=== PATIENT | female | born 1990 | race Caucasian/White ===

== ENCOUNTER 2016-08-12 07:45 | Inpatient (IN) | payer OTHER ==
--- NOTE | 2016-08-18 17:01 | P.HPOB ---
History of Present Illness H&P Date: 08/18/16 Chief Complaint: Repeat section This is a 26-year-old female 2 para 1 with an estimated date of confinement of 08/12/2016, estimated gestational age of 41 weeks, who presents to labor and delivery for scheduled repeat section. She was hoping to do a vaginal after section however she has not had spontaneous labor yet. She understands the risks of induction of labor after a section and wishes to proceed with repeat section. She is feeling good movement and has been experiencing irregular contractions. labs: GC/chlamydia-negative HIV-nonreactive Random glucose-89 Hepatitis B surface antigen-negative Hemoglobin-13.1 Toxoplasma-negative Syphilis antibody-negative Rubella-immune Blood type-80 positive Antibody screen-negative 1 hour Glucola-119 Group B streptococcus-positive Obstetrical history: . History of 1 delivery at term due to failure to progress past 3 cm. Gynecologic history: No history of sexual transmitted diseases. Social history: She is and works as a homemaker. Review of Systems Gastrointestinal: Reports abdominal pain (Irregular contractions) Genitourinary: Reports pelvic pain, Reports Past Medical History Past Medical History: Asthma History of Any Multi-Drug Resistant Organisms: None Reported Past Surgical History: Section Past Anesthesia/Blood Transfusion Reactions: No Reported Reaction Past Psychological History: No Psychological Hx Reported Smoking Status: Never smoker Past Alcohol Use History: None Reported Past Drug Use History: None Reported - Past Family History Mother History Unknown: Yes Family Medical History: No Reported History Medications and Allergies Home Medications Medication Instructions Recorded Confirmed Type Albuterol Inhaler [Ventolin 1 - 2 puff INHALATION Q6HR PRN 04/06/15 08/09/16 History Inhaler] Hzq-Gvmu-Udryl Acid 1 each PO DAILY 04/06/15 08/09/16 History [-U Capsule] Loratadine [Claritin] 10 mg PO DAILY 08/09/16 08/09/16 History Allergies Allergy/AdvReac Type Severity Reaction Status Date / Time No Known Allergies Allergy Verified 08/09/16 13:30 Exam Osteopathic Statement: *. No significant issues noted on an osteopathic structural exam other than those noted in the History and Physical/Consult. HEENT: Within normal limits Heart: Regular rate and rhythm Lungs: Clear to auscultation bilaterally Abdomen: Cervix: 1-1/2 cm/70%/-3 station heart tones: 140s by Doppler Extremities: Negative Homans Assessment and Plan (1) 41 weeks gestation of Status: Acute (2) Previous delivery affecting Status: Acute Plan: Proceed with repeat low transverse section. I have discussed the risks, benefits, and alternative therapies for the above- mentioned procedure and for both sedation/anesthesia as well as necessary blood products administration, if indicated, as they pertain to this patient. The patient has indicated her understanding and acceptance of the risks and procedures discussed.
[2016-08-19] MEDS ORDERED: LACTATED RINGERS 1,000 ML IV ONE (10:16)
[2016-08-19] MEDS ORDERED: LIDOCAINE 1% 20 ML VIAL (10MG/ML) FOR IV START INTRADERMA PRN (10:16)
[2016-08-19] MEDS ORDERED: CITRIC ACID-SODIUM CITRATE 15 ML CUP PO ONE (10:16)
[2016-08-19] MEDS ORDERED: ceFAZolin 2 GM in SODIUM CHLORIDE 0.9% 100 ML IVPB ONE (10:16)
[2016-08-19 11:03] VITALS: BMI 40.7
[2016-08-19 12:13] LABS: Basophils % (A) 0 %; CH 30.3; CHCM 34.5; Eosinophils % (A) 0 %; HCT 37.6 % (34.0-46.0); HDW 2.81; HGB 12.5 gm/dL (11.4-16.0); Luc # (Auto) 0.12; Luc % (Auto) 1; Lymphocytes # (A) 1.8 k/uL (1.0-4.8); Lymphocytes % (A) 17 %; MCH 29.4 pg (25.0-35.0); MCHC 33.3 g/dL (31.0-37.0); MCV 88.3 fL (80.0-100.0); Mean Platelet Volume 9.3; Monocytes # (A) 0.3 k/uL (0-1.0); Monocytes % (A) 3 %; Neutrophils # (A) 7.8 k/uL (1.3-7.7); Neutrophils % (A) 78 %; RBC 4.26 m/uL (3.80-5.40); RDW 13.5 % (11.5-15.5); WBC 10.1 k/uL (3.8-10.6); WBC (Perox) 10.28
[2016-08-19] MEDS ORDERED: MORPHINE SULFATE (PF) 0.3 MG/0.3 ML SYR ONE (12:20)
[2016-08-19] MEDS ORDERED: NALBUPHINE 10 MG/ML AMPUL ONE (12:20)
[2016-08-19] MEDS ORDERED: ePHEDrine 50 MG/ML 1 ML AMP ONE (12:20)
[2016-08-19] MEDS ORDERED: KETOROLAC 30 MG/ML 1 ML VIAL ONE (12:20)
[2016-08-19] MEDS ORDERED: ONDANSETRON 4 MG/2 ML VIAL ONE (12:20)
[2016-08-19] MEDS ORDERED: OXYTOCIN 10 UNIT/ML 1 ML VIAL IM ONE (12:20)
[2016-08-19] MEDS ORDERED: LANOLIN CREAM 5 GM TUBE TOPICAL PRN (12:50)
[2016-08-19] MEDS ORDERED: IBUPROFEN 600 MG TAB PO PRN (12:50)
[2016-08-19] MEDS ORDERED: METOCLOPRAMIDE 5 MG/ML 2 ML VIAL IVP PRN (12:50)
[2016-08-19] MEDS ORDERED: diphenhydrAMINE 50 MG CAP PO PRN (12:50)
[2016-08-19] MEDS ORDERED: diphenhydrAMINE 50 MG/ML 1 ML VIAL IVP PRN ×2 (12:50)
[2016-08-19] MEDS ORDERED: ACETAMINOPHEN TAB 325 MG TAB PO PRN (12:50)
[2016-08-19] MEDS ORDERED: diphenhydrAMINE 25 MG CAP PO PRN (12:50)
[2016-08-19] MEDS ORDERED: ALBUTEROL NEBULIZED 2.5 MG/3 ML INHALATION PRN (12:50)
[2016-08-19] MEDS ORDERED: SIMETHICONE 80 MG CHEWABLE PO PRN (12:50)
[2016-08-19] MEDS ORDERED: Acetaminophen-Codeine 300-30mg TAB PO PRN (12:50)
[2016-08-19] MEDS ORDERED: ZOLPIDEM 5 MG TAB PO PRN (12:50)
--- NOTE | 2016-08-19 12:58 | P.OP ---
Date of Procedure: 08/19/16 Preoperative Diagnosis: 1. Intrauterine at 41-0/7 weeks. 2. History of previous section. 3. Group B streptococcus carrier. Postoperative Diagnosis: Same Procedure(s) Performed: Repeat low transverse section Anesthesia: spinal (Duramorph) Surgeon: Lucila Kerr Coal Screener #1: Dorie Lai Estimated Blood Loss (ml): 500 Pathology: other (Placenta) Condition: stable Disposition: floor Indications for Procedure: This is a 26-year-old female 2 para 1 at 41-0/7 weeks who presents for scheduled repeat section. I have discussed the risks, benefits, and alternative therapies for the above- mentioned procedure and for both sedation/anesthesia as well as necessary blood products administration, if indicated, as they pertain to this patient. The patient has indicated her understanding and acceptance of the risks and procedures discussed. Operative Findings: A viable female is noted in the vertex presentation with scores of 9 at 1 minute and 9 at 5 minutes and infant weight of 9 lbs. 0 oz. Meconium- stained fluid was noted. Normal uterus tubes and ovaries are noted. Description of Procedure: The patient is taken to the operating room where she is placed in the dorsal supine position with leftward tilt after spinal Duramorph anesthesia is given. She is prepped and draped in the normal sterile fashion. Skin was tested and found to be adequately anesthetized. A Pfannenstiel skin incision was made with a scalpel through the previous laparotomy scar. A second knife was used to carry the incision down to the underlying layer of fascia. The fascia was nicked in the midline with a scalpel and then extended laterally bilaterally with Valera scissors. The anterior lip of the fascia was grasped with 2 Kerri clamps and then dissected off the underlying rectus muscle in the midline with Valera scissors. The inferior aspect of the fascial incision was grasped with 2 Kerri clamps and dissected off the underlying rectus muscle and the midline with Valera scissors. Next the peritoneum layer was tented up with 2 hemostats and then entered sharply with the scalpel. The incision is extended superiorly and inferiorly with Metzenbaum scissors. Next a DeLee retractor is placed. The vesicouterine peritoneum is entered sharply with Metzenbaum scissors and extended laterally bilaterally with Metzenbaum scissors and then the bladder flap is pushed inferiorly. The lower uterine segment is incised in transverse fashion with the scalpel and then bluntly entered with a hemostat. Meconium- stained fluid is noted. The incision was then extended laterally bilaterally with 2 fingers. Next the 's head is delivered through the incision. Nose and mouth are bulb suctioned. The remainder of the infant is easily delivered and placed on mother's abdomen. Cord is clamped and cut. Infant is taken to warmer by nursing staff. Uterine fundus is gently massaged and placenta is delivered manually. Uterus is exteriorized and cleared of all clots and debris. Uterine incision is closed with 0 Vicryl suture in a running locked fashion. A second layer of 0 Vicryl suture is used in a running fashion for hemostasis. Posterior cul-de-sac is suctioned of all clots and debris. Uterus is returned to the abdomen. Incision is noted to be hemostatic. Peritoneal layer is closed with 0 Vicryl suture in a running fashion. Muscle layer is reapproximated with 0 Vicryl suture in interrupted fashion. Fascia layer is then closed with 0 PDS suture with 2 sutures meeting in the midline and the knots buried in either side and in the midline. The subcutaneous tissue was then closed with 2-0 Vicryl suture. Skin layer was then closed with shan. All sponge and needle counts are correct. The patient is taken to recovery room in stable condition.
[2016-08-19 13:35] VITALS: RESP 16
[2016-08-19] MEDS: SENNOSIDES-DOCUSATE SODIUM 1 EACH TAB PO SCH (23:32)
[2016-08-20] MEDS: KETOROLAC 30 MG/ML 1 ML VIAL IVP PRN ×3 (07:28→23:24)
[2016-08-20] MEDS: SENNOSIDES-DOCUSATE SODIUM 1 EACH TAB PO SCH ×2 (07:28→20:00)
--- NOTE | 2016-08-20 08:16 | P.PN ---
Progress Note - Text Date: 08/20/2016 Time: 07 The patient is status post section Vital signs stable VAS: 0-10 Patient has no complaints of pain. The patient incurred some minimal itching yesterday, this itching is now subsiding. Pain meds to be managed by service.
--- NOTE | 2016-08-20 08:56 | P.PNOBGPC ---
Subjective - Subjective Principal diagnosis: Status post repeat section postoperative day #1 Interval history: Patient is doing well. She has been ambulating. She is passing flatus but no bowel movement yet. She has urinated without difficulty. She has passed a few small clots but bleeding has slowed since that time. Baby is breast-feeding well. Pain is fairly well controlled. Patient reports: Reports appetite normal, Reports voiding normally, Reports pain well controlled, Reports ambulating normally : doing well, nursing well Objective - Vital Signs Latest vital signs: Vital Signs Temp Pulse Resp BP Pulse Ox 08/20/16 08:18 97.9 F 71 16 103/56 95 08/20/16 04:00 80 16 118/75 100 08/20/16 00:00 98.8 F 72 16 121/74 99 08/19/16 20:00 98.0 F 72 16 122/74 99 08/19/16 15:07 77 16 120/57 97 08/19/16 14:37 71 16 108/56 99 08/19/16 14:07 70 16 119/58 98 08/19/16 13:52 78 16 136/61 98 08/19/16 13:37 91 16 117/59 98 08/19/16 13:22 89 16 124/61 96 08/19/16 13:07 97.3 F L 94 18 107/54 99 08/19/16 10:15 97.2 F L 82 16 107/62 96 Intake and Output 08/19/16 08/20/16 08/20/16 22:59 06:59 14:59 Intake Total 240 480 Output Total 400 200 Balance -160 -200 480 Intake: Oral 240 480 Output: Urine 400 200 Uretheral (Ponce) 400 Other: # Voids 0 - Exam Extremities: Present: edema (Trace). Absent: tenderness Abdomen: Present: normal appearance, soft (Positive bowel sounds 4), distention (Slight). Absent: tenderness Incision: Present: normal, dry, intact. Absent: erythematous Uterus: Present: normal, firm. Absent: tenderness - Labs Labs: Abnormal Lab Results - Last 24 Hours (Table) 08/19/16 Range/Units 11:21 Neutrophils # 7.8 H (1.3-7.7) k/uL Assessment and Plan (1) 41 weeks gestation of Current Visit: Yes Status: Acute Code(s): Z3A.41 - 41 WEEKS GESTATION OF SNOMED Code(s): 47777155 (2) Previous delivery affecting Current Visit: Yes Status: Acute Code(s): O34.219 - MATERNAL CARE FOR UNSP TYPE SCAR FROM PREVIOUS DEL SNOMED Code(s): 355816966 (3) delivery delivered Narrative/Plan: Impression is status post repeat section postoperative day #1. Plan is to continue with postoperative care today. Will advance diet as tolerated. Encouraged ambulation. Current Visit: No Status: Acute Code(s): O82 - ENCOUNTER FOR DELIVERY WITHOUT INDICATION SNOMED Code(s): 975337617
[2016-08-20 08:57] LABS: Basophils % (A) 0 %; CH 30.4; CHCM 34.4; Eosinophils # (A) 0.1 k/uL (0-0.7); Eosinophils % (A) 1 %; HCT 32.9 % (34.0-46.0); HDW 2.71; HGB 11.1 gm/dL (11.4-16.0); Luc % (Auto) 1; Lymphocytes # (A) 1.4 k/uL (1.0-4.8); Lymphocytes % (A) 12 %; MCH 29.9 pg (25.0-35.0); MCHC 33.6 g/dL (31.0-37.0); Mean Platelet Volume 8.1; Monocytes # (A) 0.3 k/uL (0-1.0); Monocytes % (A) 3 %; Neutrophils # (A) 9.3 k/uL (1.3-7.7); Neutrophils % (A) 83 %; RDW 13.6 % (11.5-15.5); WBC 11.1 k/uL (3.8-10.6); WBC (Perox) 11.55
[2016-08-20] MEDS: LORATADINE 10 MG TAB PO SCH (16:01)
[2016-08-20] MEDS: Acetaminophen-Codeine 300-30mg TAB PO PRN (19:35)
[2016-08-21] MEDS: LACTATED RINGERS 1,000 ML IV SCH ×5 (07:53→08:02)
[2016-08-21] MEDS: OXYTOCIN 30 UNITS/500 ML NS 30 UNIT in SALINE 1 500ML.BAG IV SCH ×2 (08:02→08:03)
--- NOTE | 2016-08-21 09:07 | P.DS ---
Providers Date of admission: 08/19/16 10:01 Expected date of discharge: 08/21/16 Attending physician: Lucila Kerr Primary care physician: Guero Cortes - Discharge Diagnosis(es) (1) 41 weeks gestation of Current Visit: Yes Status: Acute (2) Previous delivery affecting Current Visit: Yes Status: Acute (3) delivery delivered Current Visit: No Status: Acute Hospital Course: This is a 26-year-old female 2 para 1 who presented for repeat section on 08/19/2016. She underwent a repeat low transverse section under spinal Duramorph anesthesia on 08/19/2016 and delivered a viable female infant with scores of 9 at 1 minute and 9 at 5 minutes and infant weight of 9 lbs. 0 oz. Her postoperative course has been essentially uncomplicated. She is ambulating and passing flatus along with bowel movement. She is urinating without difficulty. Pain is well-controlled on oral pain medications. She is breast-feeding without difficulty. Lochia is decreasing. Vital signs are stable. Abdomen is soft with positive bowel sounds 4. Incision is clean dry and intact. Extremities show negative Homans. Impression is status post repeat section postoperative day #2. Plan is to discharge home later today. Mark will be removed and sterile strips placed prior to discharge. Routine postoperative and instructions are given. She is advised to follow up in the office in 1 week for a postoperative check and in 6 weeks for a check. She is advised to call the office if she has any further questions or concerns prior to her appointment time. She will be given prescriptions for ibuprofen, Tylenol 3, and a breast pump. Procedures: Repeat low transverse section on 08/19/2016 Patient Condition at Discharge: Stable Plan - Discharge Summary New Discharge Prescriptions: Acetaminophen-Codeine 300-30mg [Tylenol w/codeine #3] 1 each PO Q4HR PRN #30 tab PRN Reason: Mild Pain Ibuprofen [Motrin] 600 mg PO Q6HR PRN #60 tab PRN Reason: Mild Pain Or Fever >= 100.5 Discharge Medication List Albuterol Inhaler [Ventolin Inhaler] 1 - 2 puff INHALATION Q6HR PRN 04/06/15 [ History] Hoh-Opvu-Qchep Acid [-U Capsule] 1 each PO DAILY 04/06/15 [ History] Loratadine [Claritin] 10 mg PO DAILY 08/09/16 [History] Acetaminophen-Codeine 300-30mg [Tylenol w/codeine #3] 1 each PO Q4HR PRN #30 tab 08/21/16 [Rx] Ibuprofen [Motrin] 600 mg PO Q6HR PRN #60 tab 08/21/16 [Rx] Follow up Appointment(s)/Referral(s): Lucila Kerr DO [Doctor of Osteopathic Medicine] - 1 Week (Postoperative check in 1 week check in 6 weeks) Activity/Diet/Wound Care/Special Instructions: Instructions 1. Do not begin any exercise program for 3 weeks. 2. Do not resume sexual relations for 3 weeks or longer if uncomfortable. 3. You may take tub baths or showers at any time. 4. You may use tampons if desired after 3 weeks. 5. Keep the area of episiotomy (stitches) clean and dry. 6. If you are not nursing, wear a good fitting, supportive bra during the day and limit fluid intake for at least 1 week to prevent breast engorgement. 7. Call the office, [phone], within the next week to make appointment for your 6 week checkup if it has not already been made. 8. Report any of the following occurrences to the doctor promptly: a. Heavy, excessive bleeding b. Chills, fever c. Burning or frequency of urination d. Pain or redness and breasts if nursing e. Increasing pain or swelling in episiotomy (stitches). In addition to the above instructions, the following additional should be followed: 1. No heavy lifting or straining (exercising) until after 6 week checkup. 2. Keep abdominal incision clean and dry: You may wear a dressing if more comfortable. 3. Make office appointment for 10 days after going home or as instructed by her doctor. Discharge Disposition: HOME SELF-CARE
[2016-08-21 09:30] VITALS: BP 100/60; PULSE 72; TEMP 98.4
[2016-08-21] MEDS: SENNOSIDES-DOCUSATE SODIUM 1 EACH TAB PO SCH ×2 (09:30→10:11)
[2016-08-21] MEDS: LORATADINE 10 MG TAB PO SCH (10:06)
[2016-08-21] MEDS: Acetaminophen-Codeine 300-30mg TAB PO PRN (10:10)
== END 2016-08-21 13:30 | disposition home or self-care (01) | DRG 766 ==
LOC: 4FBP 08-19 10:01
PROVIDERS: ADMIT Obstetrics & Gynecology; ATTEND Obstetrics & Gynecology
PROC: 10D00Z1 Extraction of Products of Conception, Low, Open Approach (ICD-10-PCS; principal; 2016-08-19 12:00)
DX: O34.211 Maternal care for low transverse scar from previous cesarean delivery (principal); J45.909 Unspecified asthma, uncomplicated; O99.824 Streptococcus B carrier state complicating childbirth; O99.52 Diseases of the respiratory system complicating childbirth; O77.0 Labor and delivery complicated by meconium in amniotic fluid; Z37.0 Single live birth; Z3A.41 41 weeks gestation of pregnancy
CPT/HCPCS: 85025; 86850; 86900; 86901; 88307

== ENCOUNTER 2018-05-25 20:54 | Emergency (ER) | payer OTHER ==
[2018-05-25 21:00] VITALS: BP 118/68; PULSE 83; RESP 18; TEMP 97.9
[2018-05-25] MEDS ORDERED: IBUPROFEN 600 MG TAB PO STA (21:30)
--- NOTE | 2018-05-25 21:51 | XR ---
Right foot 3 views. History lateral foot pain. Comparison none. FINDINGS: I see no fracture nor dislocation. Joint spaces are normal. Metatarsals are intact. Impression negative right foot exam.
--- NOTE | 2018-05-25 21:58 | ED ---
Lower Extremity Injury HPI - General Chief Complaint: Extremity Injury, Lower Stated Complaint: right foot pain Time Seen by Provider: 05/25/18 21:30 Source: patient Mode of arrival: ambulatory Limitations: no limitations - History of Present Illness Initial Comments: 28-year-old female past history of asthma presenting today for chief complaint of right lateral foot pain. Patient states that she was at [facility] earlier this afternoon, she felt as though she twisted her right foot by missed stepping. Patient denies fall, injury to head or any other extremity. Patient stated that following the twisting her foot she noticed pain along the lateral aspect. There was some mild bruising. When the pain persisted this evening she presented for evaluation. Patient denies any numbness, tingling, loss sensation, pallor, coolness of extremity. Patient denies any ankle pain, knee pain, hip pain. Patient does admit to pain to palpation along the lateral aspect of the right foot. Patient denies any fever, chills or any other associated symptoms. Upon arrival patient appears well, vital signs within acceptable limits. Patient is able to ambulate. - Related Data Home Medications Medication Instructions Recorded Confirmed Albuterol Inhaler [Ventolin 1 - 2 puff INHALATION Q6HR PRN 04/06/15 08/19/16 Inhaler] Coc-Dvee-Cpfkl Acid 1 each PO DAILY 04/06/15 08/19/16 [-U Capsule (formulary)] Loratadine [Claritin] 10 mg PO DAILY 08/09/16 08/19/16 Previous Rx's Medication Instructions Recorded Acetaminophen-Codeine 300-30mg 1 each PO Q4HR PRN #30 tab 08/21/16 [Tylenol w/codeine #3] Ibuprofen [Motrin] 600 mg PO Q6HR PRN #60 tab 08/21/16 Ibuprofen 800 mg PO Q8H PRN 7 Days #21 tablet 05/25/18 Allergies Allergy/AdvReac Type Severity Reaction Status Date / Time Milk Containing Products Allergy Diarrhea Verified 05/25/18 21:00 [Dairy] Review of Systems ROS Statement: Those systems with pertinent positive or pertinent negative responses have been documented in the HPI. ROS Other: All systems not noted in ROS Statement are negative. Constitutional: Denies: fever, chills, night sweats ENT: Denies: ear pain, throat pain Respiratory: Denies: cough, dyspnea, wheezes, hemoptysis, stridor Cardiovascular: Denies: chest pain, palpitations Gastrointestinal: Denies: abdominal pain, nausea, vomiting Genitourinary: Denies: urgency, dysuria Musculoskeletal: Reports: arthralgia. Denies: as per HPI Skin: Reports: change in color (Ecchymosis of the right lateral foot). Denies: rash (Right foot pain), lesions Neurological: Denies: headache, weakness Past Medical History Past Medical History: Asthma History of Any Multi-Drug Resistant Organisms: None Reported Past Surgical History: Section Past Anesthesia/Blood Transfusion Reactions: No Reported Reaction Past Psychological History: No Psychological Hx Reported Smoking Status: Never smoker Past Alcohol Use History: None Reported Past Drug Use History: None Reported - Past Family History Mother History Unknown: Yes Family Medical History: No Reported History General Exam - General Exam Comments Initial Comments: General: The patient is awake and alert, in no distress, and does not appear acutely ill. Eye: Pupils are equal, round and reactive to light, extra-ocular movements are intact. No nystagmus. There is normal conjunctiva bilaterally. No signs of icterus. Cardiovascular: There is a regular rate and rhythm. No murmur, rub or gallop is appreciated. Respiratory: Lungs are clear to auscultation, respirations are non-labored, breath sounds are equal. No wheezes, stridor, rales, or rhonchi. Musculoskeletal: There is a circular contusion of the right lateral foot near the metatarsal of the digit. No noted swelling or deformity at the mid foot or ankle. Patient is tender to palpation over the contusion, denies any pain over the MTP, PIP and DIP joints of all 5 digits of the right foot. No pain to palpation over the proximal tibia or fibula. Patient denies any pain to palpation over the MTP joints of digits #1,2 or 3 or forefoot.Strength 5/5 of the foot with dorsiflexion and plantarflexion. Normal range of motion at the ankles equally bilaterally with 5 out of 5 strength .Sensation intact of the feet and lower extremities equally bilaterally. Dorsalis pedis Pulses equal bilaterally 2+. No evidence of foot drop. Compartments are soft and compressible. Neurological: A&O x 3. CN II-XII intact, There are no obvious motor or sensory deficits. Coordination appears grossly intact. Speech is normal. Skin: Skin is warm and dry and no rashes or lesions are noted. Psychiatric: Cooperative, appropriate mood & affect, normal judgment. Limitations: no limitations Course Vital Signs 05/25/18 20:55 Temperature 97.9 F Pulse Rate 83 Respiratory 18 Rate Blood Pressure 118/68 O2 Sat by Pulse 99 Oximetry Medical Decision Making - Medical Decision Making X-ray negative. Physical exam revealed a contusion of the right lateral foot. There is no concern for Lisfranc injury at this time, patient denies pain at this area, there is no noted x-ray findings concerning for possible Lisfranc injury. Patient is able to fully weight-bear. Patient was placed in Darell bandage, given Rice instructions. I'm concerned for foot sprain. If patient's symptoms persist for greater than 1 week she is to seek with [facility] follow -up. Patient was instructed to use ibuprofen for pain management. Case discussed with who agreed with impression and plan. As time feel patient is stable for discharge with primary care follow-up in 1-2 days. Patient is agreeable with plan. All findings were discussed with patient. Patient was discharged in stable condition, after discussing return parameters. Patient verbalized understanding of return parameters. Disposition Clinical Impression: Contusion of right foot Disposition: HOME SELF-CARE Condition: Good Instructions: Foot Contusion (ED), Foot Sprain (ED), R.I.C.E. Treatment (ED) Additional Instructions: Please use medication as discussed. Please follow-up with family doctor in the next 2 days. If symptoms persist for >1 week please seek orthopedic surgery f/u for evaluation. Please return to emergency room if the symptoms increase or worsen or for any other concerns. Prescriptions: Ibuprofen 800 mg PO Q8H PRN 7 Days #21 tablet PRN Reason: Pain Is patient prescribed a controlled substance at d/c from ED?: No Referrals: Guero Cortes DO [Primary Care Provider] - 1-2 days Dimas Berry MD [STAFF PHYSICIAN] - 06/01/18 Time of Disposition: 21:57
== END 2018-05-25 22:11 | disposition home or self-care (01) ==
LOC: EC 20:54
DX: S90.31XA Contusion of right foot, initial encounter (principal); J45.909 Unspecified asthma, uncomplicated; Z79.899 Other long term (current) drug therapy; Z91.011 Allergy to milk products; X50.1XXA Overexertion from prolonged static or awkward postures, initial encounter; Y93.01 Activity, walking, marching and hiking; Y92.89 Other specified places as the place of occurrence of the external cause
CPT/HCPCS: 99283

== ENCOUNTER 2019-05-19 06:08 | Inpatient (IN) | payer OTHER ==
[2019-05-18 13:27] VITALS: BMI 42.2
--- NOTE | 2019-05-18 18:01 | P.HPOB ---
History of Present Illness H&P Date: 05/18/19 Chief Complaint: Scheduled repeat section with tubal ligation This is a 29-year-old female 3 para 2 with an estimated date of confinement of 05/16/2019, estimated gestational age of 40-3/7 weeks, who presents for scheduled repeat section with tubal ligation for family planning. She has experienced irregular frequent contractions. She is feeling good movement. course has been essentially uncomplicated. labs: Hepatitis B surface antigen-negative RPR-nonreactive Rubella-immune Blood type-AB+ Advice screen-negative Hemoglobin-12 Toxoplasma screen-negative Random glucose-81 One hour Glucola-93 Group B streptococcus-positive Obstetrical history: . History of 2 deliveries. Gynecologic history: No history of sexual transmitted diseases. Social history: She is . She is a homemaker. Review of Systems Constitutional: Denies chills, Denies fever Eyes: denies blurred vision, denies pain Ears, nose, mouth and throat: Denies headache, Denies sore throat Cardiovascular: Denies chest pain, Denies shortness of breath Respiratory: Denies cough Gastrointestinal: Reports abdominal pain (Irregular contractions) Genitourinary: Reports pelvic pain, Reports Musculoskeletal: Reports low back pain Integumentary: Denies pruritus, Denies rash Neurological: Denies numbness, Denies weakness Psychiatric: Denies anxiety, Denies depression Past Medical History Past Medical History: Asthma History of Any Multi-Drug Resistant Organisms: None Reported Past Surgical History: Section Past Anesthesia/Blood Transfusion Reactions: Motion Sickness, Postoperative Nausea & Vomiting (PONV) Past Psychological History: No Psychological Hx Reported Smoking Status: Never smoker Past Alcohol Use History: None Reported Past Drug Use History: None Reported - Past Family History Mother History Unknown: Yes Family Medical History: No Reported History Medications and Allergies Home Medications Medication Instructions Recorded Confirmed Type Albuterol Inhaler [Ventolin 1 - 2 puff INHALATION Q4HR PRN 04/06/15 05/18/19 History Inhaler] Deb-Upvt-Bklly Acid 1 each PO DAILY 04/06/15 05/18/19 History [-U Capsule (formulary)] Allergies Allergy/AdvReac Type Severity Reaction Status Date / Time cat dander Allergy Vomiting Verified 05/18/19 13:20 Exam Osteopathic Statement: *. No significant issues noted on an osteopathic structural exam other than those noted in the History and Physical/Consult. Intake and Output 05/18/19 05/18/19 05/18/19 06:59 14:59 22:59 Other: Weight 97.976 kg HEENT: Within normal limits Heart: Regular rate and rhythm Lungs: Clear to auscultation bilaterally Abdomen: Cervix: Closed/60%/-3 heart tones: 130s by Doppler Extremities: Negative Homans Assessment and Plan (1) 40 weeks gestation of Status: Acute Code(s): Z3A.40 - 40 WEEKS GESTATION OF SNOMED Code(s): 50499553 (2) Family planning Status: Acute Code(s): Z30.09 - ENCOUNTER FOR OT GENERAL CNSL AND ADVICE ON CONTRACEPTION SNOMED Code(s): 714242505 (3) Previous delivery affecting Status: Acute Code(s): O34.219 - MATERNAL CARE FOR UNSP TYPE SCAR FROM PREVIOUS DEL SNOMED Code(s): 671963476 Plan: Admit for scheduled repeat section with bilateral partial salpingectomy. I have discussed the risks, benefits, and alternative therapies for the above- mentioned procedure and for both sedation/anesthesia as well as necessary blood products administration, if indicated, as they pertain to this patient. The patient has indicated her understanding and acceptance of the risks and procedures discussed.
[2019-05-19] MEDS ORDERED: CITRIC ACID-SODIUM CITRATE 15 ML CUP PO ONE (06:21)
[2019-05-19] MEDS ORDERED: LACTATED RINGERS 1,000 ML IV ONE (06:21)
[2019-05-19] MEDS ORDERED: LIDOCAINE 1% 20 ML VIAL (10MG/ML) FOR IV START INTRADERMA PRN (06:21)
[2019-05-19 06:36] LABS: Basophils % (A) 0 %; Eosinophils # (A) 0.1 k/uL (0-0.7); Eosinophils % (A) 1 %; HCT 36.1 % (34.0-46.0); HGB 12.3 gm/dL (11.4-16.0); Lymphocytes % (A) 18 %; MCH 29.5 pg (25.0-35.0); MCHC 34.1 g/dL (31.0-37.0); MCV 86.6 fL (80.0-100.0); Mean Platelet Volume 8.4; Monocytes # (A) 0.4 k/uL (0-1.0); Monocytes % (A) 4 %; Neutrophils # (A) 8.3 k/uL (1.3-7.7); Neutrophils % (A) 76 %; Platelet Count 152 k/uL (150-450); RBC 4.17 m/uL (3.80-5.40); RDW 13.5 % (11.5-15.5)
[2019-05-19] MEDS ORDERED: KETOROLAC 30 MG/ML 1 ML VIAL ONE (07:55)
[2019-05-19] MEDS ORDERED: MORPHINE SULFATE (PF) 0.3 MG/0.3 ML SYR ONE (07:55)
[2019-05-19] MEDS ORDERED: PHENYLEPHRINE-0.9% NACL SYG 1 MG/10 ML SYRINGE ONE (07:55)
[2019-05-19] MEDS ORDERED: OXYTOCIN 10 UNIT/ML 1 ML VIAL ONE (07:55)
[2019-05-19] MEDS ORDERED: NALBUPHINE 10 MG/ML (1 ML AMP) ONE (07:55)
[2019-05-19] MEDS ORDERED: ONDANSETRON 4 MG/2 ML VIAL ONE (07:55)
--- NOTE | 2019-05-19 08:43 | P.OP ---
Date of Procedure: 05/19/19 Preoperative Diagnosis: 1. Intrauterine at 40-3/7 weeks. 2. History of previous section 2. 3. Family-planning. Postoperative Diagnosis: Same Procedure(s) Performed: Repeat low transverse section with bilateral partial salpingectomy Anesthesia: spinal (Duramorph) Surgeon: Lucila Kerr Dedicated Local [employer] Driver #1: Marco A Chen Estimated Blood Loss (ml): 300 Pathology: other (Portions of right and left fallopian tubes) Condition: stable Disposition: floor Indications for Procedure: This is a 29-year-old female 3 para 2 at 40-3/7 weeks who presents for scheduled repeat section with bilateral partial salpingectomy. I have discussed the risks, benefits, and alternative therapies for the above- mentioned procedure and for both sedation/anesthesia as well as necessary blood products administration, if indicated, as they pertain to this patient. The patient has indicated her understanding and acceptance of the risks and procedures discussed. Operative Findings: A viable female is noted in the vertex presentation with scores of 9 at 1 minute and 9 at 5 minutes and infant weight of 8 lbs. 4 oz. Normal uterus tubes and ovaries are noted. Description of Procedure: The patient is taken to the operating room where she is placed in the dorsal supine position with leftward tilt after spinal Duramorph anesthesia is given. She is prepped and draped in the normal sterile fashion. Skin was tested and found to be adequately anesthetized. A Pfannenstiel skin incision was made with a scalpel removing the previous laparotomy scar. A second knife was used to carry the incision down to the underlying layer of fascia. The fascia was nicked in the midline with a scalpel and then extended laterally bilaterally with Valera scissors. The anterior lip of the fascia was grasped with 2 Kerri clamps and then dissected off the underlying rectus muscle in the midline with Valera scissors. The inferior aspect of the fascial incision was grasped with 2 Kerri clamps and dissected off the underlying rectus muscle and the midline with Valera scissors. Next the peritoneum layer was tented up with 2 hemostats and then entered sharply with the scalpel. The incision is extended superiorly and inferiorly with Metzenbaum scissors. Next a DeLee retractor is placed. The vesicouterine peritoneum is entered sharply with Metzenbaum scissors and extended laterally bilaterally with Metzenbaum scissors and then the bladder flap is pushed inferiorly. The lower uterine segment is incised in transverse fashion with the scalpel and then bluntly entered with a hemostat. Clear fluid is noted. The incision was then extended laterally bilaterally with 2 fingers. Next the infant's head is delivered through the incision. Nose and mouth are bulb suctioned. The remainder of the infant is easily delivered and placed on mother's abdomen. Cord is clamped and cut. Infant is taken to warmer by nursing staff. Uterine fundus is gently massaged and placenta is delivered manually. Uterus is exteriorized and cleared of all clots and debris. Uterine incision is closed with 0 Vicryl suture in a running locked fashion. A second layer of 0 Vicryl suture is used in a running fashion for hemostasis. Once adequate hemostasis as assured, the vesicouterine peritoneum is reapproximated with 2-0 Vicryl suture in a running fashion. Next the left fallopian tube is grasped in the midportion with a hemostat. Mesosalpinx is entered with Bovie cautery. Next 0 Vicryl suture is tied 2 times around both the proximal and distal portion of the tube. The knuckle of tube is then removed with Metzenbaum scissors. The ends of the tube are cauterized with Bovie cautery for hemostasis. The same procedure is carried out on the right fallopian tube. Excellent hemostasis is noted. Posterior cul-de-sac is suctioned of all clots and debris. Uterus is returned to the abdomen. Incision is noted to be hemostatic. Both tubal sites are noted be hemostatic. Peritoneal layer is closed with 0 Vicryl suture in a running fashion. Muscle layer is reapproximated with 0 Vicryl suture in interrupted fashion. Fascia layer is then closed with 0 PDS suture with 2 sutures meeting in the midline and the knots buried in either side and in the midline. The subcutaneous tissue was then closed with 2-0 Vicryl suture. Skin layer was then closed with shan. All sponge and needle counts are correct. The patient is taken to recovery room in stable condition.
[2019-05-19] MEDS ORDERED: LANOLIN CREAM 5 GM TUBE TOPICAL PRN (08:52)
[2019-05-19] MEDS ORDERED: ZOLPIDEM 5 MG TAB PO PRN (08:52)
[2019-05-19] MEDS ORDERED: HYDROcodone/APAP 7.5-325MG 1 EACH TAB PO PRN (08:52)
[2019-05-19] MEDS ORDERED: ONDANSETRON 4 MG/2 ML VIAL IVP PRN (08:52)
[2019-05-19] MEDS ORDERED: SIMETHICONE 80 MG CHEWABLE PO PRN (08:52)
[2019-05-19] MEDS ORDERED: HYDROcodone/APAP 5-325MG 1 EACH TAB PO PRN (08:52)
[2019-05-19] MEDS ORDERED: NALOXONE 0.4 MG/ML 1 ML VIAL IV PRN (08:52)
[2019-05-19] MEDS ORDERED: diphenhydrAMINE 25 MG CAP PO PRN (08:52)
[2019-05-19] MEDS ORDERED: ALBUTEROL NEBULIZED 2.5 MG/3 ML INHALATION PRN (08:52)
[2019-05-19] MEDS ORDERED: METOCLOPRAMIDE 5 MG/ML 2 ML VIAL IVP PRN (08:52)
[2019-05-19] MEDS ORDERED: diphenhydrAMINE 50 MG CAP PO PRN (08:52)
[2019-05-19] MEDS ORDERED: OXYTOCIN 20 UNITS/1000 ML NS 1,000 ML IV SCH (08:52)
[2019-05-19] MEDS ORDERED: diphenhydrAMINE 50 MG/ML 1 ML VIAL IVP PRN ×2 (08:52)
[2019-05-19] MEDS: SENNOSIDES-DOCUSATE SODIUM 1 EACH TAB PO SCH ×2 (09:09→21:16)
[2019-05-19] MEDS: KETOROLAC 30 MG/ML 1 ML VIAL IVP PRN ×2 (14:25→20:05)
[2019-05-19] MEDS: LACTATED RINGERS 1,000 ML IV SCH ×2 (20:09→21:16)
[2019-05-20] MEDS: LACTATED RINGERS 1,000 ML IV SCH (00:32)
[2019-05-20] MEDS: KETOROLAC 30 MG/ML 1 ML VIAL IVP PRN ×2 (02:13→08:45)
--- NOTE | 2019-05-20 06:17 | P.PN ---
Progress Note - Text Date: 05/20/2019 Time: 06 The patient is status post section Vital signs stable VAS: 0-10 Patient has no complaints of pain. The patient incurred some minimal itching yesterday, this itching is now subsiding. Pain meds to be managed by service.
[2019-05-20 08:02] LABS: Basophils % (A) 0 %; Eosinophils # (A) 0.1 k/uL (0-0.7); Eosinophils % (A) 1 %; HCT 33.6 % (34.0-46.0); HGB 11.1 gm/dL (11.4-16.0); Lymphocytes # (A) 1.4 k/uL (1.0-4.8); Lymphocytes % (A) 12 %; MCHC 33.2 g/dL (31.0-37.0); MCV 87.3 fL (80.0-100.0); Mean Platelet Volume 8.8; Monocytes # (A) 0.5 k/uL (0-1.0); Monocytes % (A) 4 %; Neutrophils # (A) 9.8 k/uL (1.3-7.7); Neutrophils % (A) 82 %; Platelet Count 159 k/uL (150-450); RBC 3.84 m/uL (3.80-5.40); RDW 13.9 % (11.5-15.5)
--- NOTE | 2019-05-20 08:18 | P.PNOBGPC ---
Subjective - Subjective Principal diagnosis: Status post repeat with tubal postoperative day #1 Interval history: Patient is doing well. She is passing flatus but no bowel movement yet. She is working on breast-feeding. Lochia is decreasing. Pain is fairly well controlled. Patient reports: Reports appetite normal, Reports voiding normally, Reports pain well controlled, Reports ambulating normally : doing well, nursing well Objective - Vital Signs Latest vital signs: Vital Signs Temp Pulse Resp BP Pulse Ox 05/20/19 07:45 97.7 F 73 16 94/52 96 05/20/19 03:07 98.1 F 69 17 93/56 98 05/20/19 00:00 98 F 75 17 96/62 98 05/19/19 20:00 98 F 70 18 101/66 98 05/19/19 15:53 97.4 F L 67 18 90/53 95 05/19/19 12:00 97.5 F L 85 16 92/52 97 05/19/19 10:56 64 18 95/54 05/19/19 10:26 97.4 F L 67 18 103/51 05/19/19 09:56 70 18 99/57 97 05/19/19 09:41 70 18 99/57 99 05/19/19 09:26 65 18 94/52 96 05/19/19 09:11 97.4 F L 98 18 98/54 97 05/19/19 08:56 80 18 104/56 97 Intake and Output 05/19/19 05/20/19 05/20/19 22:59 06:59 14:59 Output Total 1300 300 Balance -1300 -300 Output: Urine 1300 300 Uretheral (Ponce) 600 - Exam Extremities: Present: normal. Absent: tenderness Abdomen: Present: normal appearance, soft (Positive bowel sounds 4). Absent: distention, tenderness Incision: Present: normal, dry, intact. Absent: erythematous Uterus: Present: normal, firm. Absent: tenderness - Labs Labs: Abnormal Lab Results - Last 24 Hours (Table) 05/20/19 Range/Units 07:27 WBC 12.0 H (3.8-10.6) k/uL Hgb 11.1 L (11.4-16.0) gm/dL Hct 33.6 L (34.0-46.0) % Neutrophils # 9.8 H (1.3-7.7) k/uL Assessment and Plan Assessment: Status post repeat section with tubal ligation postoperative day #1 (1) 40 weeks gestation of Current Visit: No Status: Acute Code(s): Z3A.40 - 40 WEEKS GESTATION OF SNOMED Code(s): 24817129 (2) Family planning Current Visit: No Status: Acute Code(s): Z30.09 - ENCOUNTER FOR OTH GENERAL CNSL AND ADVICE ON CONTRACEPTION SNOMED Code(s): 919834996 (3) Previous delivery affecting Current Visit: No Status: Acute Code(s): O34.219 - MATERNAL CARE FOR UNSP TYPE SCAR FROM PREVIOUS DEL SNOMED Code(s): 211636869 Plan: Will advance diet as tolerated. Continue with postoperative care.
[2019-05-20] MEDS: IBUPROFEN 600 MG TAB PO PRN (14:02)
[2019-05-20] MEDS: SENNOSIDES-DOCUSATE SODIUM 1 EACH TAB PO SCH ×2 (20:04)
[2019-05-21] MEDS: IBUPROFEN 600 MG TAB PO PRN ×3 (00:06→12:32)
[2019-05-21 00:49] VITALS: RESP 16
[2019-05-21] MEDS: ACETAMINOPHEN TAB 325 MG TAB PO PRN ×2 (04:17→12:15)
[2019-05-21 08:37] VITALS: BP 121/71; PULSE 74; TEMP 98.2
--- NOTE | 2019-05-21 08:57 | P.DS ---
Providers Date of admission: 05/19/19 06:08 Expected date of discharge: 05/21/19 Attending physician: Lucila Kerr Primary care physician: Stated None - Discharge Diagnosis(es) (1) 40 weeks gestation of Current Visit: No Status: Acute (2) Family planning Current Visit: No Status: Acute (3) Previous delivery affecting Current Visit: No Status: Acute Hospital Course: This is a 29-year-old female 3 para 2 at 40-3/7 weeks who presented for scheduled repeat section with tubal ligation. She underwent the above- noted procedure on 05/19/2019 and delivered a viable female infant with scores of 9 at 1 minute and 9 at 5 minutes and infant weight of 8 lbs. 4 oz. Her postoperative course has been uncomplicated. Lochia is decreasing. She is working on breast-feeding. Pain is fairly well controlled with mostly ibuprofen and Tylenol. She has used [place] once. She is passing flatus and bowel movements. Vital signs are stable. Abdomen is soft with positive bowel sounds 4. Incision is clean dry and intact. Extremities show negative Homans. Impression is status post repeat section with tubal ligation postoperative day #2. Plan is to discharge home today. Routine postoperative and instructions are given. Mark will be removed and Steri-Strips placed prior to discharge. She will be given a prescription for ibuprofen and a few [place]. She has signed a start opioid form. She has been counseled regarding opioid use. She is advised to follow up in the office for a postoperative check in 1 week and a check in 6 weeks. She is advised to call the office if she has any further questions or concerns prior to her appointment time. Procedures: Repeat low transverse section with bilateral partial salpingectomy on 05/19/2019 Patient Condition at Discharge: Stable Plan - Discharge Summary Discharge Rx Participant: Yes New Discharge Prescriptions: New Ibuprofen [Motrin] 600 mg PO Q6HR PRN #60 tab PRN Reason: Mild Pain Or Fever >= 100.5 HYDROcodone/APAP 5-325MG [[place] 5-325] 1 each PO Q4HR PRN #18 tab PRN Reason: Moderate Pain Continue Tiv-Jufn-Xsgcg Acid [-U Capsule (formulary)] 1 each PO DAILY No Action Albuterol Inhaler [Ventolin Inhaler] 1 - 2 puff INHALATION Q4HR PRN PRN Reason: Bronchospasm Discharge Medication List Albuterol Inhaler [Ventolin Inhaler] 1 - 2 puff INHALATION Q4HR PRN 04/06/15 [History] Ome-Yudk-Tjhbr Acid [-U Capsule (formulary)] 1 each PO DAILY 04/06/15 [History] HYDROcodone/APAP 5-325MG [[place] 5-325] 1 each PO Q4HR PRN #18 tab 05/21/19 [Rx] Ibuprofen [Motrin] 600 mg PO Q6HR PRN #60 tab 05/21/19 [Rx] Follow up Appointment(s)/Referral(s): Lucila Kerr DO [Doctor of Osteopathic Medicine] - 1 Week Activity/Diet/Wound Care/Special Instructions: Instructions 1. Do not begin any exercise program for 3 weeks. 2. Do not resume sexual relations for 3 weeks or longer if uncomfortable. 3. You may take tub baths or showers at any time. 4. You may use tampons if desired after 3 weeks. 5. Keep the area of episiotomy (stitches) clean and dry. 6. If you are not nursing, wear a good fitting, supportive bra during the day and limit fluid intake for at least 1 week to prevent breast engorgement. 7. Call the office, [phone], within the next week to make appointment for your 6 week checkup if it has not already been made. 8. Report any of the following occurrences to the doctor promptly: a. Heavy, excessive bleeding b. Chills, fever c. Burning or frequency of urination d. Pain or redness and breasts if nursing e. Increasing pain or swelling in episiotomy (stitches). In addition to the above instructions, the following additional should be followed: 1. No heavy lifting or straining (exercising) until after 6 week checkup. 2. Keep abdominal incision clean and dry: You may wear a dressing if more comfortable. 3. Make office appointment for 10 days after going home or as instructed by her doctor. Discharge Disposition: HOME SELF-CARE
[2019-05-21] MEDS: SENNOSIDES-DOCUSATE SODIUM 1 EACH TAB PO SCH (09:04)
== END 2019-05-21 14:45 | disposition home or self-care (01) | DRG 785 ==
LOC: 4FBP 06:08
PROVIDERS: ADMIT Obstetrics & Gynecology; ATTEND Obstetrics & Gynecology
PROC: 0UB70ZZ Excision of Bilateral Fallopian Tubes, Open Approach (ICD-10-PCS; principal; 2019-05-19 07:55)
PROC: 10D00Z1 Extraction of Products of Conception, Low, Open Approach (ICD-10-PCS; principal; 2019-05-19 07:55)
DX: O34.211 Maternal care for low transverse scar from previous cesarean delivery (principal); Z3A.40 40 weeks gestation of pregnancy; Z37.0 Single live birth; J45.909 Unspecified asthma, uncomplicated; O99.52 Diseases of the respiratory system complicating childbirth; Z79.899 Other long term (current) drug therapy; Z30.2 Encounter for sterilization
CPT/HCPCS: 85025; 86850; 86900; 86901; 88302